=== PATIENT | male | born 1980 | race African-American/Black ===

== ENCOUNTER 2023-12-21 01:02 | Emergency (ER) | payer MEDICAID ==
[~2023-12-21] VITALS: Ht 188 cm; Wt 78.0 kg
[2023-12-21 01:27] VITALS: TEMP 98.1; O2SAT 98
[2023-12-21] MEDS ORDERED: CYCLOBENZAPRINE 10MG TABLET PO STA (05:33)
[2023-12-21 05:55] VITALS: BP 96/38; PULSE 57; RESP 16; O2SAT 100
== END 2023-12-21 05:56 | disposition home or self-care (01) ==
LOC: ER 01:02
DX: R68.83 Chills (without fever) (principal); F41.9 Anxiety disorder, unspecified; Z98.890 Other specified postprocedural states
CPT/HCPCS: 99283